=== PATIENT | male | born 1940 | race Caucasian/White ===

== ENCOUNTER 2018-09-02 21:07 | Inpatient (IN) | payer MEDICARE ==
[2018-09-02] MEDS ORDERED: methylPREDNISolone Sod Succ/PF 125 MG/2 ML VIAL ONE (21:32)
[2018-09-02 21:40] LABS: #Eosinphils 0.1 thou/uL (0.0-0.7); #Lymphocytes 1.5 thou/uL (1.20-3.40); #Monocytes 0.9 thou/uL (0.11-0.59); #Neutrophils 14.6 thou/uL (1.40-6.50); %Basophils 0.1 % (0.0-1.0); %Eosinophils 0.5 % (0.0-10.0); %Neutrophils 85.4 % (42.0-75.0); Hemoglobin 15.2 g/dL (14.0-18.0); Mean Corpuscular HGB CONC 33.1 g/dL (32.0-36.0); Mean Corpuscular Hemoglobin 32.1 pg (27.0-31.0); Mean Platelet Volume 7.2 fL (7.4-10.4); Platelet Count 355 thou/uL (130-400); RBC Distribution Width 12.4 % (11.5-14.5); Red Blood Cell (RBC) Count 4.73 mill/uL (4.70-6.10); White Blood Cell (WBC) Count 17.1 thou/uL (4.8-10.8)
--- NOTE | 2018-09-02 21:42 | RAD ---
EXAM: Single view of the chest HISTORY: Respiratory distress and shortness of breath COMPARISON: 04/08/2018 FINDINGS: Single view of the chest shows a normal sized cardiomediastinal silhouette. Increased inte rstitial lung markings are present. There is no evidence of consolidation, mass, or pleural effusion. Degenerative changes are seen in the spine. IMPRESSION: No evidence of acute cardiopulmonary disease
[2018-09-02 22:02] LABS: ALT (SGPT) 8 U/L (8-55); AST (SGOT) 15 U/L (5-34); Albumin 3.9 g/dL (3.4-4.8); Alkaline Phosphatase 149 U/L (40-150); Anion Gap 12 mmol/L (10-20); BUN (Urea Nitrogen) 17 mg/dL (8.4-25.7); Bilirubin, Total 0.4 mg/dL (0.2-1.2); CK (CPK) 32 U/L (30-200); Calc. Creatinine Clearance 0 mL/min (70-130); Carbon Dioxide 34 mmol/L (23-31); Chloride 89 mmol/L (98-107); Estimated GFR-MDRD 73; Globulin 3.5 g/dL (2.4-3.5); Glucose 119 mg/dL (83-110); Potassium 4.3 mmol/L (3.5-5.1); Protein, Total 7.4 g/dL (5.8-8.1); Sodium 131 mmol/L (136-145)
[2018-09-02] MEDS ORDERED: Acetaminophen 325 MG/10.15 ML UDCUP PO PRN (22:38)
[2018-09-02] MEDS ORDERED: Bisacodyl 10 MG SUPP PR PRN (22:38)
[2018-09-02] MEDS ORDERED: Calcium Carbonate 500 MG ChewTAB PO PRN (22:41)
[2018-09-02] MEDS ORDERED: Polyethylene Glycol 3350 17 GM Packet PO PRN (22:44)
[2018-09-02] MEDS ORDERED: Milk Of Magnesia 30 ML UDCUP PO PRN (22:44)
[2018-09-02] MEDS ORDERED: cloNIDine 0.1 MG TAB PO PRN (22:44)
--- NOTE | 2018-09-02 23:06 | HP ---
PRIMARY CARE PHYSICIAN: Dr. Manasa Amanda. PRIMARY FURNITURE REFINISHER: CHIEF COMPLAINT: Shortness of breath. HISTORY OF PRESENT ILLNESS: The patient is a 78-year-old male with COPD, chronic respiratory failure, on 2 L home oxygen, as well as chronic steroids, presented to the emergency room with shortness of breath. Over the last 24 hours, the patient developed gradual worsening shortness of breath to the extent that he was short of breath while resting. He had nonproductive cough. He tried using nebulizer treatment without much relief. He takes 10 mg prednisone on a daily basis. He also took one extra dose this evening. His O2 sats at home were in mid 80s despite O2 supplementation. No fever or chills reported. He denies any significant change in his lower extremity edema. No orthopnea, paroxysmal reported. PAST MEDICAL HISTORY: 1. Chronic respiratory failure, on home oxygen 2 L. 2. COPD, on chronic steroids. 3. Hypertension. 4. Former smoker. 5. Physical deconditioning. PAST SURGICAL HISTORY: 1. Removal of liver abscess. 2. Right knee arthroscopic surgery for septic arthritis in 2017. ALLERGIES: LISINOPRIL CAUSES HIVES. CURRENT MEDICATIONS: Confirmed with the family 1. Albuterol inhaler and nebulizer treatment as needed. 2. Azelastine nasal spray b.i.d. 3. Carvedilol, dose to be clarified. 4. Vitamin D3 5000 units daily. 5. Benadryl as needed. 6. Singulair 10 mg daily. 7. Prednisone 10 mg daily. 8. Spiriva inhaler as well as Respimat b.i.d. 9. Tylenol as needed. 10. Amlodipine 2.5 mg daily. 11. Mucinex as needed. 12. Dulera twice a day. SOCIAL HISTORY: The patient currently lives at home with his . He quit smoking in 2012. Drinks alcohol socially. No drug use reported. He is full code makes his own decision with the help of his family. FAMILY HISTORY: Father had history of cancer of unknown type. REVIEW OF SYSTEMS: All other review of systems were reviewed and were found negative. PHYSICAL EXAMINATION: VITAL SIGNS: Temperature 97.9, respirations 22, pulse rate of 75, blood pressure 145/97 with O2 saturation of 96% on BiPAP. HEENT: Head atraumatic and normocephalic. Sclerae anicteric. Dry mucous membranes. NECK: Supple. No JVD. No carotid bruit. LUNGS: Showed diffuse expiratory wheezing along with accessory muscle use. There was scattered rhonchi. No rales appreciated. HEART: S1, S2 present. Regular rate and rhythm. No heaves or pulsation. ABDOMEN: Soft, nontender. Bowel sounds present. EXTREMITIES: 2+ edema in bilateral lower extremity up to the mid leg, which is chronic per patient report. SKIN: Warm and dry. LYMPH NODES: No palpable lymph nodes in the neck. Peripheral, vascular, radial pulses palpable bilaterally. MUSCULOSKELETAL: No joint swelling or tenderness. LABORATORY FINDINGS: WBC 17.1 with hemoglobin 15.2, hematocrit 45.9, platelet 355. Chemistry showed sodium 131, potassium 4.3, chloride 89, bicarb 34, BUN 17, creatinine 0.9. LFTs in normal range. Troponin was negative. Chest x-ray by my review showed hyperexpanded lung without significant infiltrate. Telemetry monitoring by my review showed sinus rhythm. IMPRESSION: 1. [id number] hypoxic respiratory failure secondary to chronic obstructive pulmonary disease exacerbation. 2. Advanced chronic obstructive pulmonary disease, on 2 L home oxygen as well as chronic steroids. 3. Hypertension. 4. Physical deconditioning. 5. Chronic kidney disease, stage 2. 6. Leukocytosis secondary to #1. There was no pneumonia on the chest x-ray. 7. Chronic kidney disease, stage 2. 8. Hyponatremia. 9. Lisinopril allergy. PLAN: The patient will be monitored in the intermediate care unit. We will continue IV steroids along with nebulizer treatments. We will start him on antibiotics to cover for gram negatives including Pseudomonas as well as atypical organisms. We will consult Critical Care/Pulmonary, Dr. Gerard. We will recheck labs in a.m. Resume selected home medications. Carvedilol dose needs to be clarified. Please note that carvedilol was recently started and could be contributing to his symptoms. Plan of care was discussed with the patient and the family in detail. They stated understanding. Job ID: [id number]
[2018-09-02 23:33] VITALS: BMI 22.6
[2018-09-03] MEDS: Cefepime 2 GM in Sodium Chloride 0.9% 100 ML IVPB SCH ×3 (00:25→23:03)
[2018-09-03] MEDS: methylPREDNISolone Sod Succ 40 MG VIAL IVP SCH ×5 (00:25→23:03)
[2018-09-03] MEDS: Azithromycin 500 MG in Sodium Chloride 0.9% 250 ML 250 ML IVPB SCH ×2 (00:25→23:03)
[2018-09-03 05:21] LABS: Anion Gap 9 mmol/L (10-20); BUN (Urea Nitrogen) 17 mg/dL (8.4-25.7); Calc. Creatinine Clearance 77 mL/min (70-130); Calcium 9.1 mg/dL (7.8-10.44); Carbon Dioxide 30 mmol/L (23-31); Chloride 94 mmol/L (98-107); Estimated GFR-MDRD Greater than 90; Glucose 161 mg/dL (83-110); Potassium 4.4 mmol/L (3.5-5.1); Sodium 129 mmol/L (136-145)
[2018-09-03] MEDS ORDERED: Mometasone/Formoterol 120 PUFF INHALER INH SCH (06:30)
[2018-09-03] MEDS: Amlodipine 5 MG TAB PO SCH (08:48)
[2018-09-03] MEDS: Enoxaparin Sodium 40 MG/0.4 ML SYRINGE SC SCH (08:49)
[2018-09-03] MEDS: Famotidine 20 MG TAB PO SCH ×2 (08:49→21:23)
[2018-09-03] MEDS: guaiFENesin ER 600 MG TAB PO SCH ×2 (08:50→21:23)
[2018-09-03] MEDS: Senokot S 8.6-50 MG TAB PO SCH ×2 (08:50→21:25)
[2018-09-03] MEDS ORDERED: Spiriva 18 MCG CAP (Box of 5 Caps) INH SCH (09:00)
--- NOTE | 2018-09-03 10:27 | CON ---
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 He can barely walk even 50 feet without getting markedly short of breath. No chest pain. No chills or sweats. He has a nebulizer, which he took. He is on low-flow O2. Arrived to the ER, his saturations on 3 L of 96%, respirations 22, blood pressure was 145/97. The patient is a former smoker. He was seen in this hospital several years ago when he had problems with his knee, which is septic. PAST MEDICAL HISTORY: hypertension, COPD. PAST MEDICAL HISTORY: Previous surgeries included multiple liver surgeries, tonsillectomy, cataract surgery. Alcohol, drinks socially. SOCIAL HISTORY: Tobacco, quit 5 years ago. HOME MEDICATIONS: Includes, 1. Prednisone 10. 2. Mucinex 600. 3. Benadryl. 4. Spiriva. 5. Singulair 10. 6. Dulera. 7. Calcium. 8. Coreg. 9. Amlodipine 2.5. 10. He now is started on nebs, Zithromax, Maxipime, Lovenox, Dulera, and Solu-Medrol to which he is feeling somewhat better. ALLERGIES: LISINOPRIL. REVIEW OF SYSTEMS: Ten-point negative. PHYSICAL EXAMINATION: VITAL SIGNS: Saturation is 96% on supplemental oxygen, respirations 27, blood pressure 157/70, pulse 76. CHEST: Decreased breath sounds. Prolonged expiration. CARDIAC: Sinus tach. ABDOMEN: Soft without any masses. LABORATORY DATA: Sodium is 129. His BNP is normal. White count 17,000. IMAGING STUDIES: Chest x-ray shows hyperinflation. IMPRESSION: Chronic obstructive pulmonary disease exacerbation, bronchitis, hypertension, hyponatremia. PLAN: 1. Continue steroids. Neb treatments as prescribed. 2. Prognosis remains guarded. Hopefully, we will stabilize him and discharge home in the next several days. TIME SPENT: Consultation note, 70 minutes, 50% direct patient. Job ID: [id number]
[2018-09-03] MEDS: Azelastine 137 MCG/Spray 30 ML NS SCH ×2 (11:48→21:21)
--- NOTE | 2018-09-03 15:12 | PDOC.PN ---
- Subjective Encounter Start Date: 09/03/18 Encounter Start Time: 11:15 Subjective: pt up in bed feels sob - Objective Resuscitation Status - Order Detail: 09/02/18 22:41 Resuscitation Status Routine Resuscitation Status: FULL: Full Resuscitation Vital Signs & Weight: Vital Signs (12 hours) Temp Pulse Resp Pulse Ox 09/03/18 14:18 80 19 96 09/03/18 11:10 83 24 H 98 09/03/18 11:04 98.6 F 09/03/18 08:48 74 09/03/18 07:32 96 09/03/18 07:23 74 18 95 09/03/18 07:04 98.3 F 09/03/18 03:46 98.0 F Weight Weight 162 lb 11.2 oz Most Recent Monitor Data Heart Rate from ECG 87 NIBP 119/84 NIBP BP-Mean 95 Respiration from ECG 25 SpO2 99 I&O: 09/02/18 09/03/18 09/04/18 06:59 06:59 06:59 Intake Total 1650 900 Output Total 300 Balance 1350 900 Result Diagrams: 09/02/18 21:26 09/03/18 04:54 Phys Exam - Physical Examination Neck: no nodes, no JVD, supple, full ROM Respiratory: wheezing present diminished breath sound all over Cardiovascular: RRR, no significant murmur, no rub, gallop, irregular Gastrointestinal: soft, non-tender, no distention, positive bowel sounds Dx/Plan (1) Acute on chronic respiratory failure Code(s): J96.20 - ACUTE AND CHR RESP FAILURE, UNSP W HYPOXIA OR HYPERCAPNIA Status: Acute (2) Advanced COPD Code(s): J44.9 - CHRONIC OBSTRUCTIVE PULMONARY DISEASE, UNSPECIFIED Status: Chronic (3) HTN (hypertension) Code(s): I10 - ESSENTIAL (PRIMARY) HYPERTENSION Status: Chronic Qualifiers: - Plan will continue abx, steroids and duonbeb -: may consider getting an echo * . Review of Systems - Review of Systems Respiratory: Shortness of Breath Cardiovascular: negative: chest pain, palpitations, orthopnea, paroxysmal nocturnal dyspnea, edema, light headedness, other Gastrointestinal: negative: Nausea, Vomiting, Abdominal Pain, Diarrhea, Constipation, Melena, Hematochezia, Other Genitourinary: negative: Dysuria, Frequency, Incontinence, Hematuria, Retention , Other - Medications/Allergies Allergies/Adverse Reactions: Allergies Allergy/AdvReac Type Severity Reaction Status Date / Time lisinopril Allergy Verified 05/16/14 06:36 Medications: Current Medications Acetaminophen (Tylenol Elixir) 650 mg PO Q6H PRN PRN Reason: Fever > 101 or Mild Pain Albuterol/Ipratropium (Duoneb) 3 ml NEB [id number] [facility] Last Admin: 09/03/18 14:18 Dose: 3 ml Albuterol/Ipratropium (Duoneb) 3 ml NEB [id number] PRN PRN Reason: SOB &/or Wheezing Amlodipine Besylate (Norvasc) 2.5 mg PO DAILY [facility] Last Admin: 09/03/18 08:48 Dose: 2.5 mg Azelastine HCl (Azelastine) 0 ml NS BID [facility] Last Admin: 09/03/18 11:48 Dose: Not Given Bisacodyl (Dulcolax) 10 mg [place] DAILYPRN PRN PRN Reason: Constipation Calcium Carbonate (Tums) 1,000 mg PO Q4H PRN PRN Reason: Heartburn or Indigestion Cholecalciferol (Vitamin D3) 5,000 units PO DAILY [facility] Last Admin: 09/03/18 08:49 Dose: 5,000 units Clonidine (Catapres) 0.1 mg PO Q4H PRN PRN Reason: SBP Greater Than 180 Diphenhydramine HCl (Benadryl) 50 mg PO BID PRN PRN Reason: Nasal Congestion Enoxaparin Sodium (Lovenox) 40 mg SC 0900 [facility] Last Admin: 09/03/18 08:49 Dose: 40 mg Famotidine (Pepcid) 20 mg PO BID [facility] Last Admin: 09/03/18 08:49 Dose: 20 mg Guaifenesin (Mucinex) 600 mg PO Q12HR [facility] Last Admin: 09/03/18 08:50 Dose: 600 mg Azithromycin 500 mg/ Sodium (Chloride) 250 mls @ 250 mls/hr IVPB Q24HR [facility] Last Admin: 09/03/18 00:25 Dose: 250 mls Cefepime HCl 2 gm/ Sodium (Chloride) 100 mls @ 200 mls/hr IVPB 1200,2359 [facility] Last Admin: 09/03/18 11:48 Dose: 100 mls Magnesium Hydroxide (Milk Of Magnesium) 30 ml PO DAILYPRN PRN PRN Reason: Constipation Methylprednisolone Sodium Succinate (Solu-Medrol) 40 mg IVP Q6HR [facility] Last Admin: 09/03/18 11:48 Dose: 40 mg Mometasone Furoate/Formoterol Fumar (Dulera 200 Mcg/5 Mcg Inhaler) 2 puff INH BID-RT [facility] Montelukast Sodium (Singulair) 10 mg PO QPM [facility] Polyethylene Glycol (Miralax) 17 gm PO DAILY PRN PRN Reason: Constipation Senna/Docusate Sodium (Senokot S) 1 tab PO BID [facility] Last Admin: 09/03/18 08:50 Dose: 1 tab Sodium Chloride (Flush - Normal Saline) 10 ml IVF PRN PRN PRN Reason: Saline Flush
[2018-09-03] MEDS: Mometasone/Formoterol 120 PUFF INHALER INH SCH (18:41)
[2018-09-03] MEDS: diphenhydrAMINE 25 MG CAP PO PRN (21:23)
[2018-09-03] MEDS: Montelukast Sodium 10 mg Tablet PO SCH (21:23)
[2018-09-04 04:25] LABS: #Lymphocytes 1.1 thou/uL (1.20-3.40); #Monocytes 0.7 thou/uL (0.11-0.59); %Basophils 0.1 % (0.0-1.0); %Eosinophils 0.1 % (0.0-10.0); %Lymphocytes 8.2 % (21.0-51.0); %Monocytes 5.2 % (0.0-10.0); %Neutrophils 86.3 % (42.0-75.0); Hemoglobin 13.2 g/dL (14.0-18.0); Mean Corpuscular HGB CONC 33.9 g/dL (32.0-36.0); Mean Corpuscular Hemoglobin 32.8 pg (27.0-31.0); Mean Corpuscular Volume 96.6 fL (78.0-98.0); Mean Platelet Volume 6.8 fL (7.4-10.4); Platelet Count 288 thou/uL (130-400); RBC Distribution Width 12.2 % (11.5-14.5); Red Blood Cell (RBC) Count 4.03 mill/uL (4.70-6.10); White Blood Cell (WBC) Count 13.9 thou/uL (4.8-10.8)
[2018-09-04 04:43] LABS: Anion Gap 9 mmol/L (10-20); BUN (Urea Nitrogen) 17 mg/dL (8.4-25.7); Calc. Creatinine Clearance 83 mL/min (70-130); Calcium 8.7 mg/dL (7.8-10.44); Carbon Dioxide 30 mmol/L (23-31); Chloride 91 mmol/L (98-107); Estimated GFR-MDRD Greater than 90; Glucose 142 mg/dL (83-110); Potassium 4.2 mmol/L (3.5-5.1); Sodium 126 mmol/L (136-145)
[2018-09-04] MEDS: methylPREDNISolone Sod Succ 40 MG VIAL IVP SCH ×4 (05:47→23:12)
[2018-09-04] MEDS: Mometasone/Formoterol 120 PUFF INHALER INH SCH ×2 (08:32→19:06)
[2018-09-04] MEDS: Amlodipine 5 MG TAB PO SCH (08:51)
[2018-09-04] MEDS: Azelastine 137 MCG/Spray 30 ML NS SCH ×2 (08:51→21:08)
[2018-09-04] MEDS: Famotidine 20 MG TAB PO SCH ×2 (08:52→21:08)
[2018-09-04] MEDS: Enoxaparin Sodium 40 MG/0.4 ML SYRINGE SC SCH (08:52)
[2018-09-04] MEDS: guaiFENesin ER 600 MG TAB PO SCH ×2 (08:52→21:08)
[2018-09-04] MEDS: Senokot S 8.6-50 MG TAB PO SCH ×2 (08:53→21:09)
[2018-09-04] MEDS: Doxycycline 100 MG CAP PO SCH ×2 (08:55→21:08)
--- NOTE | 2018-09-04 09:26 | PRG ---
DATE OF SERVICE: 09/04/2018 SUBJECTIVE: Scott Carroll this morning is awake, alert, and responsive. Still very short of breath with minimal exertion. No coughing or wheezing. OBJECTIVE: VITAL SIGNS: His sats are 98% on 2 L, blood pressure 140/70, pulse 90, respirations about 30, even he just came back from the bathroom. CHEST: Decreased breath sounds. Prolonged expiration. CARDIAC: Sinus tach. ABDOMEN: Without any masses. LABORATORY DATA: Sodium is 126. Otherwise, labs unremarkable. DIAGNOSTIC STUDIES: Chest x-ray showed hyperinflation, not much of a infiltrate, unclear why he is hyponatremic. He is not taking a diuretic. Continue to monitor his hyponatremia. I may consider switching Glen to oral antibiotics. Continue steroids. He has end-stage chronic obstructive pulmonary disease and unfortunately, his physician is out of [place], he may benefit from nocturnal ventilation. Job ID: [id number]
--- NOTE | 2018-09-04 13:14 | PDOC.PN ---
- Subjective Encounter Start Date: 09/04/18 Encounter Start Time: 11:15 Subjective: pt up in bed still has some sob - Objective Resuscitation Status - Order Detail: 09/02/18 22:41 Resuscitation Status Routine Resuscitation Status: FULL: Full Resuscitation Vital Signs & Weight: Vital Signs (12 hours) Temp Pulse Resp Pulse Ox 09/04/18 11:16 97.9 F 09/04/18 10:58 78 20 98 09/04/18 08:51 90 09/04/18 08:32 98 09/04/18 08:29 90 24 H 98 09/04/18 07:32 97.8 F 09/04/18 07:25 98 09/04/18 03:00 98.0 F 09/04/18 02:20 71 23 H 94 L Weight Weight 162 lb 6.4 oz Most Recent Monitor Data Heart Rate from ECG 92 NIBP 137/83 NIBP BP-Mean 101 Respiration from ECG 29 SpO2 95 I&O: 09/03/18 09/04/18 09/05/18 06:59 06:59 06:59 Intake Total 1650 2500 500 Output Total 300 750 Balance 1350 1750 500 Result Diagrams: 09/04/18 04:12 09/04/18 04:12 Phys Exam - Physical Examination Respiratory: no wheezing, no rales, no rhonchi, wheezing present, clear to auscultation bilateral Cardiovascular: RRR, no significant murmur, no rub, gallop, irregular Gastrointestinal: soft, non-tender, no distention, positive bowel sounds Musculoskeletal: no edema, pulses present, edema present Dx/Plan (1) Acute on chronic respiratory failure Code(s): J96.20 - ACUTE AND CHR RESP FAILURE, UNSP W HYPOXIA OR HYPERCAPNIA Status: Acute (2) Advanced COPD Code(s): J44.9 - CHRONIC OBSTRUCTIVE PULMONARY DISEASE, UNSPECIFIED Status: Chronic (3) HTN (hypertension) Code(s): I10 - ESSENTIAL (PRIMARY) HYPERTENSION Status: Chronic Qualifiers: (4) Hyponatremia Code(s): E87.1 - HYPO-OSMOLALITY AND HYPONATREMIA Status: Acute - Plan will check serum/urine osmolarity and urine Na, will check an echo -: he is not on any ssri nor diuretic. pt's abx has been changed per pulm -: on steroids and duonebs. * . Review of Systems - Review of Systems Respiratory: Shortness of Breath Cardiovascular: negative: chest pain, palpitations, orthopnea, paroxysmal nocturnal dyspnea, edema, light headedness, other Gastrointestinal: negative: Nausea, Vomiting, Abdominal Pain, Diarrhea, Constipation, Melena, Hematochezia, Other Genitourinary: negative: Dysuria, Frequency, Incontinence, Hematuria, Retention , Other - Medications/Allergies Allergies/Adverse Reactions: Allergies Allergy/AdvReac Type Severity Reaction Status Date / Time lisinopril Allergy Verified 05/16/14 06:36 Medications: Current Medications Acetaminophen (Tylenol Elixir) 650 mg PO Q6H PRN PRN Reason: Fever > 101 or Mild Pain Albuterol/Ipratropium (Duoneb) 3 ml NEB [id number] [facility] Last Admin: 09/04/18 10:58 Dose: 3 ml Albuterol/Ipratropium (Duoneb) 3 ml NEB [id number] PRN PRN Reason: SOB &/or Wheezing Amlodipine Besylate (Norvasc) 2.5 mg PO DAILY [facility] Last Admin: 09/04/18 08:51 Dose: 2.5 mg Azelastine HCl (Azelastine) 0 ml NS BID [facility] Last Admin: 09/04/18 08:51 Dose: 1 spr Bisacodyl (Dulcolax) 10 mg [place] DAILYPRN PRN PRN Reason: Constipation Calcium Carbonate (Tums) 1,000 mg PO Q4H PRN PRN Reason: Heartburn or Indigestion Cholecalciferol (Vitamin D3) 5,000 units PO DAILY [facility] Last Admin: 09/04/18 08:51 Dose: 5,000 units Clonidine (Catapres) 0.1 mg PO Q4H PRN PRN Reason: SBP Greater Than 180 Diphenhydramine HCl (Benadryl) 50 mg PO BID PRN PRN Reason: Nasal Congestion Last Admin: 09/03/18 21:23 Dose: 50 mg Doxycycline Hyclate (Vibramycin) 100 mg PO BID [facility] Stop: 09/09/18 09:01 Last Admin: 09/04/18 08:55 Dose: 100 mg Enoxaparin Sodium (Lovenox) 40 mg SC 0900 [facility] Last Admin: 09/04/18 08:52 Dose: 40 mg Famotidine (Pepcid) 20 mg PO BID [facility] Last Admin: 09/04/18 08:52 Dose: 20 mg Guaifenesin (Mucinex) 600 mg PO Q12HR [facility] Last Admin: 09/04/18 08:52 Dose: 600 mg Magnesium Hydroxide (Milk Of Magnesium) 30 ml PO DAILYPRN PRN PRN Reason: Constipation Methylprednisolone Sodium Succinate (Solu-Medrol) 40 mg IVP Q6HR [facility] Last Admin: 09/04/18 05:47 Dose: 40 mg Mometasone Furoate/Formoterol Fumar (Dulera 200 Mcg/5 Mcg Inhaler) 2 puff INH BID-RT [facility] Last Admin: 09/04/18 08:32 Dose: 2 puff Montelukast Sodium (Singulair) 10 mg PO QPM [facility] Last Admin: 09/03/18 21:23 Dose: 10 mg Polyethylene Glycol (Miralax) 17 gm PO DAILY PRN PRN Reason: Constipation Senna/Docusate Sodium (Senokot S) 1 tab PO BID [facility] Last Admin: 09/04/18 08:53 Dose: Not Given Sodium Chloride (Flush - Normal Saline) 10 ml IVF PRN PRN PRN Reason: Saline Flush
[2018-09-04] MEDS: Montelukast Sodium 10 mg Tablet PO SCH (21:09)
[2018-09-04] MEDS: diphenhydrAMINE 25 MG CAP PO PRN (21:09)
[2018-09-05] MEDS: methylPREDNISolone Sod Succ 40 MG VIAL IVP SCH (05:50)
[2018-09-05] MEDS: Mometasone/Formoterol 120 PUFF INHALER INH SCH (07:47)
[2018-09-05] MEDS: Amlodipine 5 MG TAB PO SCH (09:18)
[2018-09-05] MEDS: Azelastine 137 MCG/Spray 30 ML NS SCH (09:19)
[2018-09-05] MEDS: Famotidine 20 MG TAB PO SCH (09:20)
[2018-09-05] MEDS: Enoxaparin Sodium 40 MG/0.4 ML SYRINGE SC SCH (09:20)
[2018-09-05] MEDS: Senokot S 8.6-50 MG TAB PO SCH (09:20)
[2018-09-05] MEDS: guaiFENesin ER 600 MG TAB PO SCH (09:20)
[2018-09-05] MEDS: Doxycycline 100 MG CAP PO SCH (09:20)
--- NOTE | 2018-09-05 09:39 | PRG ---
DATE OF SERVICE: 09/05/2018 SUBJECTIVE: This morning, he is much better. He wants to go home. OBJECTIVE: VITAL SIGNS: His saturations are 100% on 2 L, blood pressure 92/60, respiratory rate 20, pulse 90, and afebrile. CHEST: Decreased breath sounds. No wheezing. CARDIAC: Normal S1 and S2. No gallops. ABDOMEN: No masses. IMPRESSION: End-stage chronic obstructive pulmonary disease exacerbation and bronchitis. PLAN: Switch him over to oral prednisone. He can be discharged home anytime. 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 Job ID: [id number]
[2018-09-05 15:35] VITALS: TEMP 97.9
[2018-09-05 16:39] LABS: Anion Gap 10 mmol/L (10-20); BUN (Urea Nitrogen) 20 mg/dL (8.4-25.7); Calc. Creatinine Clearance 90 mL/min (70-130); Carbon Dioxide 30 mmol/L (23-31); Chloride 91 mmol/L (98-107); Estimated GFR-MDRD Greater than 90; Glucose 118 mg/dL (83-110); Potassium 4.4 mmol/L (3.5-5.1); Sodium 127 mmol/L (136-145)
--- NOTE | 2018-09-05 17:11 | DIS ---
DATE OF ADMISSION: 09/02/2018 DATE OF DISCHARGE: 09/05/2018 DISCHARGE DIAGNOSES: As of the following; 1. Acute on chronic respiratory failure. 2. Advanced chronic obstructive pulmonary disease exacerbation. 3. Hypertension. 4. Hyponatremia. HOSPITAL COURSE: The patient is a 78-year-old male, who has a history of COPD, currently on oxygen, who presented to the hospital with worsening shortness of breath. The patient has a history of being on chronic steroids and also on home oxygen. In the ER, he was put on prophylactic antibiotics and also was put on DuoNeb and IV Solu-Medrol. The patient was unable to afore Bystolic, so he actually has been taking carvedilol, which could be contributing to his symptoms. Carvedilol was discontinued and the patient continued to improve throughout the whole hospital stay. The patient was seen by Pulmonary/Critical Care. His antibiotics were changed to oral and also his steroids have been tapered. He will follow up with Pulmonology as outpatient. The patient was found to be significantly hyponatremic. His TSH was 0.5 and also his cortisol level was really low. This is most likely secondary to him being on chronic steroids. His serum osmolality was 281, and his urine sodium was 20 and his urine osmolality was 682. The patient continued to improve throughout the whole hospital stay. He is okay to be discharged by Pulmonary. I did order an echocardiogram, which indicated an EF of 50% to 60% with elevated pulmonary artery pressure, which is most likely secondary to his underlying COPD. The patient will be discharged home. I have given him a steroid taper and also he was notified that he will continue back on his 10 mg of steroids. Also, he is going to be going home with doxycycline 100 mg b.i.d., Dulera 2 puffs b.i.d., prednisone taper and then going back on his regular 10 mg daily. He is on Norvasc 2.5 mg daily, tiotropium 2.5 mcg inhalation b.i.d. and tiotropium 18 mcg inhalation daily, Singulair 10 mg daily, and vitamin D 5000 units p.o. daily. PHYSICAL EXAMINATION: VITAL SIGNS: Temperature of 97.9, pulse 79, respiratory rate 19, oxygen saturation 92% on nasal cannula, and blood pressure 146/74. GENERAL: He is awake, alert, and oriented x3. Does not appear in any distress. CARDIOVASCULAR: S1 and S2 present. No murmurs, rubs, or gallops. LUNGS: Mild wheezing, however, clear to auscultation. ABDOMEN: Soft and nontender. Bowel sounds are present x2. DISCHARGE INSTRUCTIONS: The patient will be discharged home. He will follow up with Pulmonary and PCP. I believe his hyponatremia could be secondary to his hypo-cortisol level. His cortisol level was only 1, and he may require followup to Endocrinology. However, the patient currently is asymptomatic. He is currently on chronic 10 mg of steroids. Job ID: [id number]
[2018-09-06] MEDS ORDERED: predniSONE 20 MG TAB PO SCH (08:00)
== END 2018-09-05 17:49 | disposition home or self-care (01) | DRG 189 ==
LOC: ERS 21:07 → IMCU/EMU 23:20
PROVIDERS: ADMIT Internal Medicine; ATTEND Internal Medicine
DX: J96.21 Acute and chronic respiratory failure with hypoxia (principal); J44.1 Chronic obstructive pulmonary disease with (acute) exacerbation; E87.1 Hypo-osmolality and hyponatremia; I12.9 Hypertensive chronic kidney disease with stage 1 through stage 4 chronic kidney disease, or unspecified chronic kidney disease; N18.2 Chronic kidney disease, stage 2 (mild); D72.829 Elevated white blood cell count, unspecified; Z99.81 Dependence on supplemental oxygen; Z88.8 Allergy status to other drugs, medicaments and biological substances; Z79.52 Long term (current) use of systemic steroids; Z87.891 Personal history of nicotine dependence; Z79.51 Long term (current) use of inhaled steroids; Z79.899 Other long term (current) drug therapy
CPT/HCPCS: 36415; 71045; 80048; 80053; 82533; 82550; 83735; 83880; 83930; 83935; 84300; 84443; 84484; 85025; 93005; 93306; 94640; 94660; 94760; J0456; J0692; J1650; J2920; J2930; J3490; J7050; J7620; Q0163

== ENCOUNTER 2019-01-01 14:21 | Inpatient (IN) | payer MEDICARE ==
[2019-01-01 15:01] LABS: #Eosinphils 0.1 thou/uL (0.0-0.7); #Lymphocytes 1.4 thou/uL (1.20-3.40); #Monocytes 0.8 thou/uL (0.11-0.59); #Neutrophils 10.2 thou/uL (1.40-6.50); %Basophils 0.1 % (0.0-1.0); %Eosinophils 0.6 % (0.0-10.0); %Monocytes 6.2 % (0.0-10.0); %Neutrophils 82.1 % (42.0-75.0); Hemoglobin 14.1 g/dL (14.0-18.0); Mean Corpuscular HGB CONC 34.6 g/dL (32.0-36.0); Mean Corpuscular Hemoglobin 33.3 pg (27.0-31.0); Mean Corpuscular Volume 96.3 fL (78.0-98.0); Mean Platelet Volume 7.6 fL (7.4-10.4); Platelet Count 271 thou/uL (130-400); RBC Distribution Width 12.1 % (11.5-14.5); Red Blood Cell (RBC) Count 4.23 mill/uL (4.70-6.10); White Blood Cell (WBC) Count 12.5 thou/uL (4.8-10.8)
[2019-01-01] MEDS ORDERED: Albuterol Sulfate 2.5 mg/0.5 ml Neb ONE (15:06)
--- NOTE | 2019-01-01 15:08 | RAD ---
EXAM: XR Chest 1 View Portable PROVIDED CLINICAL HISTORY: Shortness of breath COMPARISON: 09/02/2018 FINDINGS: Cardiac and mediastinal silhouette is unchanged in appearance. Vascular calcification is again seen i nvolving the aortic arch. Severe emphysematous changes are redemonstrated. No definite focal consolidation, pleural fluid or pneumothorax apparent. IMPRESSION: Stable radiographic appearance of the chest.
[2019-01-01] MEDS ORDERED: methylPREDNISolone Sod Succ/PF 125 MG/2 ML VIAL ONE (15:11)
[2019-01-01 15:22] LABS: Actual Bicarbonate (HCO3a) 26.3 mEq/L (22-28); Analyzer IN Cardio ER; Base Excess (BEa) 3.6 mEq/L (-2.0 to +3.0); CO2 Tension 34.3 mmHg (35.0-45.0); Calcium, Ionized 1.13 mmol/L (1.12-1.30); Carboxyhemoglobin (COHb) 0.9 gm% (0.0-3.0); Hemoglobin (Hb) 14.5 g/dL (14.0-18.0); O2 Tension (PaO2) 86.8 mmHg (> 70.0); Potassium - ABG Lab 4.22 mmol/L (3.70-5.30)
[2019-01-01 15:23] LABS: ALT (SGPT) 19 U/L (8-55); AST (SGOT) 27 U/L (5-34); Albumin 3.9 g/dL (3.4-4.8); Alkaline Phosphatase 86 U/L (40-110); Anion Gap 14 mmol/L (10-20); BUN (Urea Nitrogen) 16 mg/dL (8.4-25.7); Bilirubin, Total 0.3 mg/dL (0.2-1.2); Calc. Creatinine Clearance 0 mL/min (70-130); Calcium 8.9 mg/dL (7.8-10.44); Carbon Dioxide 30 mmol/L (23-31); Chloride 98 mmol/L (98-107); Estimated GFR-MDRD 66; Globulin 2.7 g/dL (2.4-3.5); Glucose 115 mg/dL (83-110); Potassium 4.6 mmol/L (3.5-5.1); Protein, Total 6.6 g/dL (5.8-8.1); Sodium 137 mmol/L (136-145)
[2019-01-01 15:59] LABS: CKMB 3.7 ng/mL (0-6.6)
[2019-01-01 16:17] LABS: Puncture Site LRA
[2019-01-01 16:18] LABS: ALV-art Gradient 84.225 (0-20)
[2019-01-01] MEDS ORDERED: Ondansetron PF 4 MG/2 ML Vial IVP PRN (19:06)
[2019-01-01] MEDS ORDERED: hydrALAZINE 20 MG/ML VIAL SLOW IVP PRN (19:06)
[2019-01-01] MEDS ORDERED: Benzonatate 100 MG CAP PO PRN (19:06)
[2019-01-01] MEDS ORDERED: Ondansetron ODT 4 MG TAB PO PRN (19:06)
[2019-01-01] MEDS ORDERED: Acetaminophen 500 MG TAB PO PRN (19:06)
[2019-01-01 20:17] VITALS: BMI 24.7
[2019-01-01] MEDS: Montelukast Sodium 10 mg Tablet PO SCH (21:27)
[2019-01-01] MEDS: Famotidine 20 MG TAB PO SCH (21:27)
[2019-01-01] MEDS: methylPREDNISolone Sod Succ 40 MG VIAL IVP SCH (21:27)
--- NOTE | 2019-01-02 01:22 | HP ---
PRIMARY CARE PROVIDER: Dr. Manasa Amanda. CHIEF COMPLAINT: Shortness of breath. HISTORY OF PRESENT ILLNESS: This is a 78-year-old male with a known history of chronic hypoxic respiratory failure and COPD, on chronic oxygen supplementation at 2 L/minute by nasal cannula at home, who presented with increased shortness of breath after taking multiple bronchodilator treatments with his home nebulizer. The patient denied any exposure history, documented fever, or recent vaccinations. The patient states he took his home nebulizer therapy, however, this was not successful and alleviating his symptoms. The patient states the symptoms began within the last 24 hours, progressing to the point where he woke up in the marklogic developer hours, unable to breathe and was noted by family members with a red face. The patient was notably admitted to [facility] from 09/02/2018 through 09/05/2018, for COPD exacerbation of similar nature. In the emergency room, the patient underwent general evaluation, receiving initial evaluation including ABG showing hypoxemia. The patient was placed on BiPAP noninvasive mechanical ventilation, and received IV Solu-Medrol, DuoNebs, Levaquin, and intravenous normal saline. The patient had some improvement in overall shortness of breath and was referred to the Hospitalist Service for admission. PAST MEDICAL HISTORY: 1. Chronic hypoxic respiratory failure, on chronic oxygen supplementation at 2 L/minute by nasal cannula. 2. Chronic obstructive pulmonary disease. 3. Hypertension. 4. Remote tobacco use. 5. Physical deconditioning. PAST SURGICAL HISTORY: 1. Status post liver abscess with resection. 2. Status post right knee arthroscopy due to septic arthritis. CURRENT MEDICATIONS: 1. Albuterol inhaler 90 mcg inhaled q.6 hours p.r.n. 2. Amlodipine 2.5 mg p.o. daily. 3. Spiriva HandiHaler 18 mcg inhaled b.i.d. 4. ProAir HFA 2 puffs inhaled q.6 hours p.r.n. 5. Azelastine nasal spray b.i.d. 6. Carvedilol 12.5 mg p.o. b.i.d. 7. Singulair 10 mg p.o. daily. 8. Prednisone 10 mg daily. 9. Dulera one inhalation b.i.d. 10. Pulmicort one inhalation b.i.d. ALLERGIES: LISINOPRIL. FAMILY HISTORY: Father with cancer of unknown type. SOCIAL HISTORY: The patient resides at home with his . Quit smoking in 2013. Occasional alcohol use. No illicit drug use. Functional of all activities of daily living. REVIEW OF SYSTEMS: CONSTITUTIONAL: Negative for weight loss or gain, ability to conduct usual activities. SKIN: Negative for rash, itching. EYES: Negative for double vision, pain. ENT/MOUTH: Negative for nose bleeding, neck stiffness, pain, tenderness. CARDIOVASCULAR: Negative for palpitations, dyspnea on exertion, orthopnea. RESPIRATORY: Negative for shortness of breath, wheezing, cough, hemoptysis, fever or night sweats. GASTROINTESTINAL: Negative for poor appetite, abdominal pain, heartburn, nausea, vomiting, constipation, or diarrhea. GENITOURINARY: Negative for urgency, frequency, dysuria, nocturia. MUSCULOSKELETAL: Negative for pain, swelling. NEUROLOGIC/PSYCHIATRIC: Negative for anxiety, depression. ALLERGY/IMMUNOLOGIC: Negative for skin rash, bleeding tendency. Otherwise, negative except as stated per HPI. PHYSICAL EXAMINATION: VITAL SIGNS: On admission, blood pressure 131/80, pulse 86, respiratory rate 24, temperature 99.1 degrees Fahrenheit, O2 saturation 100% on BiPAP noninvasive mechanical ventilation. GENERAL APPEARANCE: This is a 78-year-old male, alert and oriented x3, pleasant, in mild to moderate respiratory distress. HEENT: Pupils are equal, round, reactive to light and accommodation. Extraocular muscles are intact. No scleral icterus. No conjunctival injection. Nares patent. OP is clear. NECK: Supple. No cervical adenopathy. No thyromegaly. No carotid bruits. No JVD appreciated. Cervical spine with full active and passive range of motion. No meningeal signs noted. CHEST: Diminished breath sounds bilaterally with prolonged expiratory phase. CARDIOVASCULAR: S1 and S2 with tachycardia. Distant heart sounds. ABDOMEN: Rounded, soft, nontender, and nondistended. Bowel sounds are positive in all 4 quadrants. There is no hepatosplenomegaly. No abdominal bruits. No rebound or guarding appreciated. EXTREMITIES: Warm and dry with fair turgor. No clubbing, cyanosis, or asymmetric edema appreciated. Pulses palpable distally at the dorsalis pedis, posterior tibial, and popliteal arteries bilaterally. Capillary refill less than 2 seconds. NEUROLOGIC: Cranial nerves 2 through 12 are grossly intact. No focal or lateralizing signs appreciated. PERTINENT LABORATORY AND X-RAY FINDINGS: Basic metabolic profile within normal limits. Lactic acid level 1.9. Troponin I 0.227. BNP 29. Total CK of 59. CBC showed a white blood cell count of 12.5, hemoglobin 14, hematocrit 41, platelet count 271 with 82% neutrophils. ABG dated 01/01/2019, showed pH 7.50, pCO2 of 34, PO2 87, bicarb 26.3, O2 saturation 97% on 30% FiO2 by BiPAP modality. Portable chest x-ray dated 01/01/2019, showed severe emphysematous changes bilaterally without focal infiltrate. EKG dated 01/01/2019, by my interpretation shows sinus mechanism with heart rates in the 90s. Normal R-wave progression noted in the precordial leads. Normal axis. Premature ventricular contractions noted. No acute ST-T wave changes appreciated. ASSESSMENT AND PLAN: 1. Chronic obstructive pulmonary disease exacerbation. The patient will be admitted to the intermediate care unit. We will continue BiPAP noninvasive mechanical ventilation to maintain O2 saturations greater than or equal to 90%. Continue Solu-Medrol 40 mg IV q.6 hours with additional DuoNeb q.4 hours. Levaquin 750 mg IV daily. Resume Spiriva HandiHaler and Dulera. Consult Pulmonology Service in the a.m. 2. Acute on chronic hypoxic respiratory failure. Secondary to #1. See #1 above for management. 3. Hypertension. Confirm home blood pressure regimen and resume when compared when verified. Hydralazine 10 mg IV q.4 hours p.r.n. systolic greater than or equal to 170. 4. Deconditioning. PT evaluation in the a.m. for functional assessment. 5. Neutrophilic leukocytosis. Secondary to #1. Continue serial CBC monitoring. 6. Prophylaxis. SCDs while in bed. Pepcid 20 mg p.o. b.i.d. 7. Code status, full. Surrogate medical decision maker is the patient's spouse. Job ID: [id number]
[2019-01-02] MEDS: methylPREDNISolone Sod Succ 40 MG VIAL IVP SCH ×4 (03:51→19:54)
[2019-01-02 06:17] LABS: Anion Gap 13 mmol/L (10-20); BUN (Urea Nitrogen) 16 mg/dL (8.4-25.7); Calc. Creatinine Clearance 74 mL/min (70-130); Calcium 8.4 mg/dL (7.8-10.44); Carbon Dioxide 27 mmol/L (23-31); Chloride 98 mmol/L (98-107); Estimated GFR-MDRD 78; Glucose 134 mg/dL (83-110); Potassium 3.9 mmol/L (3.5-5.1); Sodium 134 mmol/L (136-145)
[2019-01-02 07:07] LABS: Hemoglobin 13.3 g/dL (14.0-18.0); Mean Corpuscular HGB CONC 33.8 g/dL (32.0-36.0); Mean Corpuscular Hemoglobin 33.1 pg (27.0-31.0); Mean Corpuscular Volume 97.8 fL (78.0-98.0); Mean Platelet Volume 7.6 fL (7.4-10.4); Platelet Count 259 thou/uL (130-400); RBC Distribution Width 12.1 % (11.5-14.5); Red Blood Cell (RBC) Count 4.02 mill/uL (4.70-6.10); White Blood Cell (WBC) Count 6.8 thou/uL (4.8-10.8)
[2019-01-02 07:23] LABS: Band 6 % (5-11); Lymphocytes 7 % (21-51); MDiff Complete? YES; Monocytes 4 % (0-10); Neutrophil 77 % (42-75); Platelet Morphology Comment Appears Adequate; RBC Morphology Normal; Reactive Lymphocytes 6 % (0-10)
[2019-01-02] MEDS: Mometasone/Formoterol 120 PUFF INHALER INH SCH ×2 (07:59→17:50)
[2019-01-02] MEDS: Famotidine 20 MG TAB PO SCH ×2 (08:25→19:53)
[2019-01-02] MEDS ORDERED: Spiriva 18 MCG CAP (Box of 5 Caps) INH SCH (09:00)
--- NOTE | 2019-01-02 13:53 | CON ---
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 Put on BiPAP, this morning, he is still having tachypnea and tachycardia, but is better. He has been in this hospital several times. He follows up with doctors mainly out of [facility] area. PAST MEDICAL HISTORY: COPD; former smoker, quit 5 years ago; and hypertension. PREVIOUS SURGERIES: Some kind of liver abscess surgery years ago. MEDICATIONS: Home medication includes; 1. Pulmicort 0.25. 2. Albuterol HFA. 3. Prednisone 10. 4. Diurectic. 5. Astelin. 6. Spiriva. 7. Dulera. 8. Singulair. 9. Amlodipine. He is now on; 1. DuoNeb. 2. Levaquin. 3. Medrol. 4. Singulair. 5. Dulera. He is somewhat better this morning. ALLERGIES: LISINOPRIL. REVIEW OF SYSTEMS: Ten-point negative. PHYSICAL EXAMINATION: VITAL SIGNS: On examination, saturations are 98% on 2 L, respiratory rate 22, pulse 60, and blood pressure 104/69. CHEST: Decreased breath sounds. Prolonged expiration. CARDIAC: Sinus tach. ABDOMEN: Soft, no masses. DIAGNOSTIC DATA: His pO2 is 86, pCO2 34, pH 7.5, on BiPAP. His lytes are normal. X-ray shows no obvious infiltrates. White count 6000. ASSESSMENT: 1. Chronic obstructive pulmonary disease exacerbation. 2. Bronchitis. PLAN: I agree with present treatment, neb treatments, steroids, Dulera. We will follow. Consultation note, 70 minutes, 50% direct patient care. Job ID: [id number]
[2019-01-02] MEDS ORDERED: diphenhydrAMINE 50 MG CAP PO PRN (16:10)
[2019-01-02] MEDS ORDERED: guaiFENesin ER 600 MG TAB PO PRN (16:10)
--- NOTE | 2019-01-02 16:28 | PDOC.HOSPP ---
- Subjective Encounter Date: 01/02/19 Encounter Time: 16:10 Subjective: f/u for COPD exacerbation with acute/chronic resp failure. Off BiPAP currently and near baseline resp status. - Objective Vital Signs & Weight: Vital Signs (12 hours) Temp Pulse Pulse Pulse Resp BP BP 01/02/19 14:21 84 24 H 01/02/19 12:00 98.5 F 01/02/19 10:50 89 20 01/02/19 09:04 95 103 H 133/86 146/73 H 01/02/19 08:00 97.2 F L 01/02/19 07:52 87 22 H Pulse Ox Pulse Ox Pulse Ox Pulse Ox 01/02/19 14:21 01/02/19 12:00 01/02/19 10:50 100 01/02/19 09:04 98 93 L 97 01/02/19 08:00 98 01/02/19 07:52 99 Weight Weight 177 lb 4.8 oz Most Recent Monitor Data Heart Rate from ECG 93 NIBP 127/78 NIBP BP-Mean 94 Respiration from ECG 24 SpO2 98 I&O: 01/01/19 01/02/19 01/03/19 06:59 06:59 06:59 Intake Total 200 Output Total 600 Balance -400 Result Diagrams: 01/02/19 05:22 01/02/19 05:22 Additional Labs: Microbiology 01/01/19 14:47 Venous blood - Left Arm Blood Culture - Preliminary Specimen has been received and culture in progress. No Growth to date. 01/01/19 14:40 Venous blood - Right Arm Blood Culture - Preliminary Specimen has been received and culture in progress. No Growth to date. Laboratory Tests 01/01/19 01/01/19 01/01/19 14:40 14:42 14:42 WBC 12.5 H Hgb 14.1 Creatine Kinase 59 B-Natriuretic Peptide 29.0 EKG Reviewed by me: Yes (Tele - SR) Hospitalist ROS - Medication Medications: Active Medications Generic Name Dose Route Start Last Admin Trade Name Freq PRN Reason Stop Dose Admin Albuterol/Ipratropium 3 ml 01/01/19 22:30 01/02/19 14:21 Duoneb NEB 3 ml [id number] ELIDA Administration Famotidine 20 mg 01/01/19 21:00 01/02/19 08:25 Pepcid PO 20 mg BID ELIDA Administration Methylprednisolone Sodium Succinate 40 mg 01/01/19 21:00 01/02/19 08:25 Solu-Medrol IVP 40 mg 0300,0900,1500,2100 ELIDA Administration Mometasone Furoate/Formoterol Fumar 1 puff 01/02/19 06:30 01/02/19 07:59 Dulera 200 Mcg/5 Mcg Inhaler INH 1 puff BID-RT ELIDA Administration Montelukast Sodium 10 mg 01/01/19 21:00 01/01/19 21:27 Singulair PO 10 mg QPM ELIDA Administration Sodium Chloride 10 ml 01/01/19 20:17 01/02/19 03:51 Flush - Normal Saline IVF 10 ml PRN PRN Administration Saline Flush - Exam General Appearance: NAD, awake alert Eye: PERRL, anicteric sclera ENT: normocephalic atraumatic, no oropharyngeal lesions Neck: supple, symmetric, no JVD, no thyromegaly Heart: RRR, no murmur, no gallops, no rubs, normal peripheral pulses Respiratory - other findings: diminished bilat, exp wheezes Gastrointestinal: soft, non-tender, non-distended, normal bowel sounds, no palpable masses Extremities: no cyanosis, no clubbing, no edema Skin: normal turgor, no lesions Neurological: cranial nerve grossly intact, no new deficit Musculoskeletal: normal tone, normal strength Psychiatric: normal affect, A&O x 3 Hosp A/P (1) COPD exacerbation Code(s): J44.1 - CHRONIC OBSTRUCTIVE PULMONARY DISEASE W (ACUTE) EXACERBATION Status: Acute Plan: Improved, off BiPAP, continue Solumedrol, bronchodilators, abx and O2 supplementation (2) Acute on chronic respiratory failure Code(s): J96.20 - ACUTE AND CHR RESP FAILURE, UNSP W HYPOXIA OR HYPERCAPNIA Status: Acute Qualifiers: Respiratory failure complication: hypoxia Qualified Code(s): J96.21 - Acute and chronic respiratory failure with hypoxia Plan: Secondary to #1, off BiPAP, see above (3) HTN (hypertension) Code(s): I10 - ESSENTIAL (PRIMARY) HYPERTENSION Status: Chronic Qualifiers: Hypertension type: essential hypertension Plan: Stable, resume home BP regimen (4) Neutrophilic leukocytosis Code(s): D72.9 - DISORDER OF WHITE BLOOD CELLS, UNSPECIFIED Status: Acute Plan: Improved, continue to monitor CBC - Plan plan discussed w/ family, continue antibiotics, PT/OT, rn social work, respiratory therapy, DVT proph w/SCDs Stable currently Continue pulmonary supportive mgmt Continue Solumedrol Transfer to Medical floor AM lab: BMP, CBC Likely home in 48h
[2019-01-02] MEDS: Budesonide 0.25 MG/2 ML NEB NEB SCH (17:50)
[2019-01-02] MEDS: Montelukast Sodium 10 mg Tablet PO SCH (19:53)
[2019-01-02] MEDS: Azelastine 137 MCG/Spray 30 ML NS SCH (20:03)
[2019-01-03] MEDS: methylPREDNISolone Sod Succ 40 MG VIAL IVP SCH ×2 (02:39→09:23)
[2019-01-03 05:17] LABS: Anion Gap 12 mmol/L (10-20); BUN (Urea Nitrogen) 20 mg/dL (8.4-25.7); Calc. Creatinine Clearance 76 mL/min (70-130); Calcium 8.3 mg/dL (7.8-10.44); Carbon Dioxide 30 mmol/L (23-31); Chloride 98 mmol/L (98-107); Estimated GFR-MDRD 81; Glucose 125 mg/dL (83-110); Potassium 4.2 mmol/L (3.5-5.1); Sodium 136 mmol/L (136-145)
[2019-01-03 05:32] LABS: Band 6 % (5-11); Lymphocytes 3 % (21-51); MDiff Complete? YES; Mean Corpuscular HGB CONC 33.5 g/dL (32.0-36.0); Mean Corpuscular Volume 98.6 fL (78.0-98.0); Mean Platelet Volume 7.8 fL (7.4-10.4); Metamyelocyte 1 % (0-0); Monocytes 7 % (0-10); Neutrophil 83 % (42-75); Platelet Count 266 thou/uL (130-400); RBC Distribution Width 12.1 % (11.5-14.5); Red Blood Cell (RBC) Count 3.95 mill/uL (4.70-6.10); White Blood Cell (WBC) Count 12.1 thou/uL (4.8-10.8)
[2019-01-03] MEDS: Budesonide 0.25 MG/2 ML NEB NEB SCH ×2 (07:33→20:27)
[2019-01-03] MEDS: Mometasone/Formoterol 120 PUFF INHALER INH SCH ×2 (07:35→20:30)
[2019-01-03] MEDS: Azelastine 137 MCG/Spray 30 ML NS SCH ×2 (09:18→22:12)
[2019-01-03] MEDS: Amlodipine 5 MG TAB PO SCH (09:19)
[2019-01-03] MEDS: Triamterene/Hydrochlorothiazide 37.5 mg/25 mg Tablet PO SCH (09:19)
[2019-01-03] MEDS: Famotidine 20 MG TAB PO SCH ×2 (09:19→22:12)
[2019-01-03] MEDS ORDERED: predniSONE 20 MG TAB PO SCH (09:45)
--- NOTE | 2019-01-03 11:39 | PRG ---
DATE OF SERVICE: 01/03/2019 SUBJECTIVE: This morning, the patient is awake, alert, and responsive. He is better. OBJECTIVE: VITAL SIGNS: His saturations are 99% on 2 L, temperature is 98, pulse 82 , blood pressure is 173/83. CHEST: Decreased breath sounds with no wheezing. CARDIAC: Normal S1 and S2. No gallops. ABDOMEN: No masses. ASSESSMENT: 1. Chronic obstructive pulmonary disease exacerbation. 2. Bronchitis. No evidence of pneumonia. Switch over to oral medications. Hopefully, can be discharged home next several days, his transition care is in [place], [place], and his physician is out of [place]. Job ID: [id number] MTDD
--- NOTE | 2019-01-03 19:48 | PDOC.HOSPP ---
- Subjective Encounter Date: 01/03/19 Encounter Time: 15:30 Subjective: f/u for resp failure and COPD exacerbation initially on BiPAP now on NC. Feels much better overall. Appetite good. Voiding ok. - Objective Vital Signs & Weight: Vital Signs (12 hours) Temp Pulse Pulse Pulse Resp BP BP 01/03/19 18:00 97.8 F 107 H 20 01/03/19 15:22 99.4 F 01/03/19 14:55 112 H 104 H 174/95 H 161/89 H 01/03/19 14:09 87 19 01/03/19 11:43 104 H 23 H 01/03/19 11:22 98.4 F 01/03/19 09:19 78 01/03/19 08:00 BP Pulse Ox Pulse Ox Pulse Ox 01/03/19 18:00 147/80 H 96 01/03/19 15:22 01/03/19 14:55 96 94 L 01/03/19 14:09 96 01/03/19 11:43 01/03/19 11:22 01/03/19 09:19 01/03/19 08:00 98 Weight Weight 177 lb 3 oz Most Recent Monitor Data Heart Rate from ECG 97 NIBP 138/73 NIBP BP-Mean 94 Respiration from ECG 28 SpO2 97 I&O: 01/02/19 01/03/19 01/04/19 06:59 06:59 06:59 Intake Total 200 240 Output Total 600 Balance -400 240 Result Diagrams: 01/03/19 04:50 01/03/19 04:50 Additional Labs: Microbiology 01/01/19 14:47 Venous blood - Left Arm Blood Culture - Preliminary Specimen has been received and culture in progress. No Growth to date. 01/01/19 14:40 Venous blood - Right Arm Blood Culture - Preliminary Specimen has been received and culture in progress. No Growth to date. Laboratory Tests 01/01/19 01/01/19 01/01/19 14:40 14:42 14:42 WBC 12.5 H Hgb 14.1 Creatine Kinase 59 B-Natriuretic Peptide 29.0 EKG Reviewed by me: Yes (Tele - SR) Hospitalist ROS - Medication Medications: Active Medications Generic Name Dose Route Start Last Admin Trade Name Freq PRN Reason Stop Dose Admin Albuterol/Ipratropium 3 ml 01/01/19 22:30 01/03/19 14:09 Duoneb NEB 3 ml [id number] ELIDA Administration Amlodipine Besylate 2.5 mg 01/03/19 09:00 01/03/19 09:19 Norvasc PO 2.5 mg DAILY ELIDA Administration Azelastine HCl 0 ml 01/02/19 21:00 01/03/19 09:18 Azelastine NS 1 spray BID ELIDA Administration Budesonide 0.25 mg 01/02/19 18:30 01/03/19 07:33 Pulmicort Neb Solution NEB 0.25 mg BID-RT ELIDA Administration Cholecalciferol 5,000 units 01/03/19 09:00 01/03/19 09:19 Vitamin D3 PO 5,000 units DAILY ELIDA Administration Famotidine 20 mg 01/01/19 21:00 01/03/19 09:19 Pepcid PO 20 mg BID ELIDA Administration Montelukast Sodium 10 mg 01/01/19 21:00 01/02/19 19:53 Singulair PO 10 mg QPM ELIDA Administration Sodium Chloride 10 ml 01/01/19 20:17 01/02/19 03:51 Flush - Normal Saline IVF 10 ml PRN PRN Administration Saline Flush Triamterene/HCTZ 1 tab 01/03/19 09:00 01/03/19 09:19 Maxzide-25 PO 1 tab DAILY ELIDA Administration - Exam General Appearance: NAD, awake alert Eye: PERRL, anicteric sclera ENT: normocephalic atraumatic, no oropharyngeal lesions Neck: supple, symmetric, no JVD, no thyromegaly, no lymphadenopathy Heart: RRR, no murmur, no gallops, no rubs, normal peripheral pulses Respiratory - other findings: diminished bilat, prolonged exp phase Gastrointestinal: soft, non-tender, non-distended, normal bowel sounds, no palpable masses Extremities: no cyanosis, no clubbing, no edema Skin: normal turgor, no lesions Neurological: cranial nerve grossly intact, no new deficit Musculoskeletal: normal tone, generalized weakness Psychiatric: normal affect, A&O x 3 Hosp A/P (1) COPD exacerbation Code(s): J44.1 - CHRONIC OBSTRUCTIVE PULMONARY DISEASE W (ACUTE) EXACERBATION Status: Acute Plan: Improved, continue Prednisone, Duonebs, Levaquin, Pulmicort (2) Acute on chronic respiratory failure Code(s): J96.20 - ACUTE AND CHR RESP FAILURE, UNSP W HYPOXIA OR HYPERCAPNIA Status: Acute Qualifiers: Respiratory failure complication: hypoxia Qualified Code(s): J96.21 - Acute and chronic respiratory failure with hypoxia Plan: Baseline O2 requirement (3) HTN (hypertension) Code(s): I10 - ESSENTIAL (PRIMARY) HYPERTENSION Status: Chronic Qualifiers: Hypertension type: essential hypertension (4) Neutrophilic leukocytosis Code(s): D72.9 - DISORDER OF WHITE BLOOD CELLS, UNSPECIFIED Status: Acute - Plan plan discussed w/ family, continue antibiotics, respiratory therapy, out of bed/ ambulate Stable currently Continue pulmonary supportive mgmt Continue Prednisone Transfer to Medical floor Nocturnal BiPAP Likely home in am
[2019-01-03] MEDS: Montelukast Sodium 10 mg Tablet PO SCH (22:12)
[2019-01-04] MEDS: Budesonide 0.25 MG/2 ML NEB NEB SCH (06:44)
[2019-01-04] MEDS: Mometasone/Formoterol 120 PUFF INHALER INH SCH (06:45)
[2019-01-04] MEDS ORDERED: predniSONE 20 MG TAB PO SCH (08:00)
[2019-01-04 08:02] VITALS: BP 153/66; TEMP 98.4
[2019-01-04] MEDS: Triamterene/Hydrochlorothiazide 37.5 mg/25 mg Tablet PO SCH (08:23)
[2019-01-04] MEDS: Amlodipine 5 MG TAB PO SCH (08:24)
[2019-01-04] MEDS: Famotidine 20 MG TAB PO SCH (08:25)
[2019-01-04] MEDS: Azelastine 137 MCG/Spray 30 ML NS SCH (08:25)
--- NOTE | 2019-01-04 09:28 | PRG ---
DATE OF SERVICE: 01/04/2019 SUBJECTIVE: This morning, he is at his baseline. OBJECTIVE: VITAL SIGNS: Temperature 98, pulse 77, respiratory rate 22, saturations 92%, blood pressure 120/66. CHEST: Decreased breath sounds. No wheezing. CARDIAC: Normal S1 and S2. No gallops. ABDOMEN: No mass. ASSESSMENT AND PLAN: End-stage chronic obstructive pulmonary disease, bronchitis. He is stable enough to be discharged home, to be tapered to a baseline at 20 of prednisone daily. Follow up with his manager clinical informatics out of [place]. Job ID: [id number]
--- NOTE | 2019-01-04 19:27 | DIS ---
DATE OF ADMISSION: 01/01/2019 DATE OF DISCHARGE: 01/04/2019 DISCHARGE DIAGNOSES: 1. Chronic obstructive pulmonary disease exacerbation, improved. 2. Acute on chronic hypoxic respiratory failure with chronic oxygen supplementation at 2 to 3 L/minute by nasal cannula. 3. Hypertension, stable. 4. Neutrophilic leukocytosis, stable. CONSULTATIONS: Dr. Gerard with Pulmonology Service. PERTINENT LABORATORY AND X-RAY FINDINGS: BNP 29. Troponin I 0.227. CBC showed white blood cell count ranging between 6.8 to 12.5, hemoglobin ranged between 13.0 to 14.1. Blood cultures x2 dated 01/01/2019, showed no growth at 48 hours. Portable chest x-ray dated 01/01/2019, showed no acute cardiopulmonary process. HOSPITAL COURSE: The patient was admitted to the intermediate care unit after presenting with COPD exacerbation. The patient with longstanding history of COPD, on chronic oxygen supplementation at 2 L/minute by nasal cannula, presenting with increased respiratory distress. The patient was placed on BiPAP noninvasive mechanical ventilation to maintain O2 saturations. The patient received IV Solu-Medrol in addition to bronchodilator therapy with DuoNeb, Levaquin, and Dulera. The patient slowly clinically improved with aggressive pulmonary supportive management and transitioned off BiPAP noninvasive mechanical ventilation in 24 hours. The patient was evaluated by the Pulmonology Service with recommendations to continue aggressive pulmonary supportive management and transition to prednisone. The patient transferred to the medical floor, remaining clinically stable and at baseline oxygen requirement at 2 L/minute by nasal cannula. I have examined the patient at the time of discharge and discussed followup instructions. The patient verbalized understanding and in agreement, ready for discharge on 01/04/2019. DISCHARGE MEDICATIONS: 1. ProAir HFA 2 puffs inhaled q.6 hours p.r.n. 2. Azelastine 137 mcg 1 spray in each naris b.i.d. 3. Pulmicort 0.25 mg nebulized b.i.d. 4. Vitamin D3 5000 units p.o. daily. 5. Singulair 10 mg p.o. at bedtime. 6. Spiriva Respimat 2.5 mcg inhaled daily. 7. Triamterene/HCTZ 37.5/25 mg one tablet p.o. daily. 8. Norvasc 2.5 mg p.o. daily. 9. Levaquin 500 mg p.o. daily x5 days. 10. Dulera 200/5 mcg one puff inhaled b.i.d. 11. Prednisone 20 mg take two tablets p.o. daily x5 days, then one tablet p.o. daily. FOLLOWUP: The patient may follow up with his primary care provider, Dr. Manasa Amanda within 7 days of discharge. The patient may follow up with Dr. Gerard with Pulmonology Service and to call his office for appointment time and date. CONDITION ON DISCHARGE: Fair. ACTIVITY: Ad-denise. DIET: Regular. CODE STATUS: Full. DISPOSITION: Home on 01/04/2019. TIME SPENT: Total time preparing and coordinating discharge is 34 minutes. Job ID: [id number]
--- NOTE | 2019-01-06 10:39 | EKG ---
Test Reason : Blood Pressure : / mmHG Vent. Rate : 091 BPM Atrial Rate : 091 BPM P-R Int : 106 ms QRS Dur : 096 ms QT Int : 382 ms P-R-T Axes : 085 057 067 degrees QTc Int : 469 ms Sinus rhythm with short FL with occasional Premature ventricular complexes Otherwise normal ECG Poor baseline Confirmed by PAULA RAMIREZ, REHANA ([id number]), international editorial producer KEI BECERRA ([id number]) on 01/06/2019 10:39:13 AM Referred By: Confirmed By:REHANA MITCHELL MD
== END 2019-01-04 12:36 | disposition home or self-care (01) | DRG 189 ==
LOC: ERS 14:21 → ERHOLD 15:12 → IMCU/EMU 20:12 → T4-A 01-03 17:51
PROVIDERS: ADMIT Internal Medicine; ATTEND Internal Medicine
PROC: 5A09357 Assistance with Respiratory Ventilation, Less than 24 Consecutive Hours, Continuous Positive Airway Pressure (ICD-10-PCS; principal; 2019-01-01)
DX: J96.21 Acute and chronic respiratory failure with hypoxia (principal); J44.1 Chronic obstructive pulmonary disease with (acute) exacerbation; D72.828 Other elevated white blood cell count; I10 Essential (primary) hypertension; Z87.891 Personal history of nicotine dependence; Z79.899 Other long term (current) drug therapy; Z79.51 Long term (current) use of inhaled steroids; Z79.52 Long term (current) use of systemic steroids; Z99.81 Dependence on supplemental oxygen; Z88.8 Allergy status to other drugs, medicaments and biological substances
CPT/HCPCS: 36415; 71045; 80048; 80053; 82550; 82553; 82805; 83605; 83880; 84484; 85007; 85025; 85027; 87040; 93005; 94640; 94644; 94660; 94760; 96361; 96365; 96366; 96375; J1956; J2920; J2930; J7512; J7611; J7620; J7626